=== PATIENT | male | born 1990 | race Caucasian/White ===

== ENCOUNTER 2016-05-22 08:24 | Outpatient (CLI) | payer MEDICAID, OTHER | END 2016-05-22 08:25 | disposition home or self-care (01) | DX: R79.89 Other specified abnormal findings of blood chemistry (principal); R53.83 Other fatigue ==

== ENCOUNTER 2017-10-09 09:37 | Outpatient (CLI) | payer MEDICAID ==
[2017-10-09 18:22] LABS: CALCIUM 9.2 mg/dL (8.5-10.3); CREATININE 0.9 mg/dL (0.6-1.2)
[2017-10-09 18:35] LABS: THYROID STIMULATING HORMONE 1.08 uIU/mL (0.34-5.60)
[2017-10-09 18:39] LABS: PROLACTIN 10.52 ng/mL
[2017-10-09 18:40] LABS: FREE T4 (FREE THYROXINE) 1.02 ng/dL (0.58-1.64)
[2017-10-09 19:02] LABS: FOLLICLE STIMULATING HORMONE 1.48 mIU/mL
[2017-10-09 19:03] LABS: LUTEINIZING HORMONE 0.83 mIU/mL
== END 2017-10-09 09:38 | disposition home or self-care (01) ==
LOC: LAB.F 09:37
PROVIDERS: ATTEND Neurological Surgery
DX: D49.7 Neoplasm of unspecified behavior of endocrine glands and other parts of nervous system (principal)
CPT/HCPCS: 36415; 80048; 81599; 83001; 83002; 84146; 84305; 84403; 84439; 84443

== ENCOUNTER 2017-11-02 08:00 | Outpatient (CLI) | payer MEDICAID | END 2017-11-02 23:59 | LOC: LAB.R 08:00 | PROVIDERS: ATTEND Internal Medicine | DX: D35.2 Benign neoplasm of pituitary gland (principal); E29.1 Testicular hypofunction; E22.1 Hyperprolactinemia; R63.5 Abnormal weight gain; R53.1 Weakness | CPT/HCPCS: 81599; 82530 ==

== ENCOUNTER 2018-05-26 10:01 | Outpatient (CLI) | payer MEDICAID ==
[2018-05-26 19:24] LABS: THYROID STIMULATING HORMONE 0.83 uIU/mL (0.34-5.60)
[2018-05-26 19:33] LABS: PROLACTIN < 0.25 ng/mL
== END 2018-05-26 10:02 | disposition home or self-care (01) ==
LOC: LAB.F 10:01
PROVIDERS: ATTEND Internal Medicine
DX: E22.1 Hyperprolactinemia (principal); R53.83 Other fatigue
CPT/HCPCS: 36415; 81599; 82670; 84146; 84402; 84403; 84439; 84443; 85014